=== PATIENT | male | born 1980 | race African-American/Black ===

== ENCOUNTER 2017-11-19 22:24 | Emergency (ER) | payer MEDICAID ==
[~2017-11-19] VITALS: Ht 190.5 cm; Wt 80.5 kg
[~2017-11-19 22:24] MED LIST: IBUP-1008 PO; LEVE1000 PO
[2017-11-20 00:30] VITALS: BP 115/82
== END 2017-11-20 00:30 | disposition home or self-care (01) ==
LOC: ER 11-20 00:30
DX: R56.9 Unspecified convulsions (principal); M79.672 Pain in left foot; Z88.2 Allergy status to sulfonamides; Z98.890 Other specified postprocedural states; F17.200 Nicotine dependence, unspecified, uncomplicated; F12.10 Cannabis abuse, uncomplicated
CPT/HCPCS: 82962; 99281; 99283

== ENCOUNTER 2024-03-30 11:18 | Emergency (ER) | payer MEDICAID ==
[~2024-03-30] VITALS: Ht 190.5 cm; Wt 75.0 kg
[2024-03-30 11:26] VITALS: O2SAT 99
[2024-03-30 12:39] VITALS: BP 124/82
[2024-03-30] MEDS: HYDROCODONE/ACETAMINOPHEN 5/325MG TABLET PO ONE (12:39)
[2024-03-30 13:16] LABS: GLUCOSE URINE NEGATIVE (NEGATIVE); KETONES URINE TRACE (NEGATIVE)
[2024-03-30 13:26] LABS: BASOPHILS % 0.3 % (0.0-2.0); EOSINOPHILS % 1.8 % (0.0-5.0); HEMATOCRIT. 45.3 % (42.0-52.0); HEMOGLOBIN. 14.7 g/dL (14.0-18.0); LYMPHOCYTES % 28.6 % (20.0-50.0); MEAN CORPUSCULAR HEMOGLOBIN 30.1 pg (28.0-32.0); MEAN CORPUSCULAR HGB CONC 32.5 g/dL (31.0-37.0); MEAN CORPUSCULAR VOLUME 92.8 fL (80.0-94.0); MEAN PLATELET VOLUME 7.2 fl (7.4-10.4); MONOCYTES % 2.7 % (2.0-8.0); NEUTROPHILS % 66.6 % (40.0-76.0); PLATELET 240 x1000/uL (130-400); RED BLOOD CELL COUNT 4.88 mill/uL (4.7-6.1); WHITE BLOOD COUNT 6.9 x1000/uL (4.5-11.0)
[2024-03-30 13:40] LABS: CARBON DIOXIDE 28 mEq/L (21-32); CHLORIDE 108 mEq/L (98-107); POTASSIUM 4.2 mEq/L (3.5-5.1); SODIUM 143 mEq/L (136-145)
[2024-03-30 13:41] LABS: CALCIUM 9.7 mg/dL (8.7-10.4)
[2024-03-30 13:45] LABS: CREATININE 1.2 mg/dL (0.6-1.3)
[2024-03-30 13:46] LABS: GLUCOSE 85 mg/dL (70-105); UREA NITROGEN BLOOD 10 mg/dL (9-23)
[2024-03-30 13:47] LABS: ALANINE AMINOTRANSFERASE 17 IU/L (10-49); ALBUMIN 4.6 g/dL (3.2-4.8); ASPARTATE AMINOTRANSFERASE 20 IU/L (<34)
[2024-03-30 13:48] LABS: BILIRUBIN DIRECT 0.4 mg/dL (<=3.0); BILIRUBIN TOTAL 1.5 mg/dL (0.1-1.0); INR 0.9; PROTEIN TOTAL 7.4 g/dL (6.0-8.3); PROTHROMBIN TIME 10.6 sec (9.6-11.0)
[2024-03-30 13:53] LABS: CLARITY URINE CLEAR (CLEAR); COLOR URINE YELLOW (YELLOW); SPECIFIC GRAVITY URINE 1.027 (1.005-1.030)
[2024-03-30 13:54] LABS: TROPONIN I HIGH SENSITIVITY < 4 ng/L (3.0-53)
[2024-03-30 13:54] LABS: LEUKOCYTE ESTERASE URINE NEGATIVE (NEGATIVE); NITRITE URINE NEGATIVE (NEGATIVE); OCCULT BLOOD URINE NEGATIVE (NEGATIVE); PROTEIN URINE NEGATIVE (NEGATIVE)
[2024-03-30 14:01] LABS: RBC URINE 0-2 /hpf (0-2); YEAST URINE NONE SEEN
[2024-03-30 14:02] LABS: BACTERIA URINE 1+; SQUAMOUS EPITHELIAL CELL URINE RARE /lpf (RARE/1+); WBC URINE 0-2 /hpf (0-2)
[2024-03-30] MEDS ORDERED: IBUP-2030 MT (14:36)
[2024-03-30] MEDS ORDERED: CYCL5TAB3 MT (14:36)
[2024-03-30 15:03] VITALS: PULSE 98; RESP 16; TEMP 36.83628; O2SAT 99
== END 2024-03-30 15:03 | disposition home or self-care (01) ==
LOC: ER 11:37
DX: M79.18 Myalgia, other site (principal); F12.90 Cannabis use, unspecified, uncomplicated; Z88.8 Allergy status to other drugs, medicaments and biological substances
CPT/HCPCS: 36415; 71045; 74176; 80048; 80076; 81003; 84484; 85025; 93005; 99285

== ENCOUNTER 2024-08-16 16:06 | Emergency (ER) | payer MEDICAID ==
[~2024-08-16] VITALS: Ht 182.9 cm; Wt 83.9 kg
[~2024-08-16 16:06] MED LIST changes: +CYCL5TAB3 MT; +IBUP-2030 MT
[2024-08-16 16:33] VITALS: O2SAT 100
[2024-08-16] MEDS ORDERED: LEVE100023 PO (16:54)
[2024-08-16] MEDS ORDERED: LEVE100023 MT (16:56)
[2024-08-16] MEDS: LEVETIRACETAM 500MG TABLET PO ONE (17:24)
[2024-08-16 17:30] VITALS: BP 119/86; PULSE 84; RESP 14; TEMP 36.8; O2SAT 99
== END 2024-08-16 17:33 | disposition home or self-care (01) ==
LOC: ER 16:06
DX: R56.9 Unspecified convulsions (principal); F12.90 Cannabis use, unspecified, uncomplicated; Z79.899 Other long term (current) drug therapy
CPT/HCPCS: 99283